=== PATIENT | female | born 1965 | race Two or more races ===

== ENCOUNTER 2019-07-07 17:50 | Emergency (ER) | payer MEDICAID, OTHER ==
[2019-07-07 19:10] LABS: Basophils # (auto) 0 uL; Basophils % (auto) 0.5 % (0.0-2.0); Eosinophils # (auto) 0.1 uL; Eosinophils % (auto) 0.8 % (0.0-7.0); Hematocrit 40.8 % (36.0-46.0); Hemoglobin 13.6 g/dL (12.2-16.2); Lymphocytes # (auto) 3.5 uL; Lymphocytes % (auto) 44.1 % (10.0-50.0); Mean Corpuscular Hemoglobin 28.3 pg (28.0-32.0); Mean Corpuscular Hgb Conc. 33.3 g/dL (32.0-36.0); Mean Corpuscular Volume 85.1 fL (80.0-100.0); Monocytes # (auto) 0.5 uL; Monocytes % (auto) 5.7 % (0.0-12.0); Neutrophils # (auto) 3.9 uL; Neutrophils % (auto) 48.9 % (37.0-80.0); Nucleated Red Blood Cells % 0.1 %; Platelet Count (auto) 198 10^3/uL (140-450); Red Blood Cells 4.79 10^6/uL (4.0-5.20); Red Cell Distribution Width 14.4 % (11.8-14.3)
[2019-07-07 19:24] LABS: Alanine Aminotransferase 31 U/L (13-56); Albumin 3.5 g/dL (3.4-5.0); Anion Gap 11 (5-15); Aspartate Aminotransferase 22 U/L (15-37); BUN/Creatinine Ratio 16.1; Blood Urea Nitrogen 14 mg/dL (7-18); Calcium 8.7 mg/dL (8.5-10.1); Carbon Dioxide 22 mmol/L (21-32); Chloride 106 mmol/L (98-107); GFR African American 87 mL/min; GFR Non-African American 72 mL/min; Glucose 185 mg/dL (74-106); Potassium 3.1 mmol/L (3.5-5.1); Sodium 139 mmol/L (136-145)
[2019-07-07 19:34] LABS: Alkaline Phosphatase 191 U/L (45-117); Bilirubin, Total 0.4 mg/dL (0.2-1.0); Total Protein 7.3 g/dL (6.4-8.2)
[2019-07-07] MEDS ORDERED: SODIUM CHLORIDE 0.9% 1,000 ML IV ONE (20:00)
== END 2019-07-07 23:45 | disposition left against medical advice (07) ==
LOC: EDBD 17:50 → ER 17:59
DX: R07.89 Other chest pain (principal); R55 Syncope and collapse; R11.0 Nausea; R06.02 Shortness of breath; E11.9 Type 2 diabetes mellitus without complications; Z86.73 Personal history of transient ischemic attack (TIA), and cerebral infarction without residual deficits
CPT/HCPCS: 36415; 80053; 82962; 84484; 85025; 93005

== ENCOUNTER 2021-04-15 15:24 | Inpatient (IN) | payer MEDICAID ==
[~2021-04-15] VITALS: Ht 157.5 cm; Wt 83.0 kg
[2021-04-15 16:23] LABS: Basophils # (auto) 0.1 10 ^3/uL (0-0.2); Basophils % (auto) 0.8 % (0.0-2.0); Eosinophils # (auto) 0.1 10 ^3/uL (0-0.8); Eosinophils % (auto) 1.1 % (0.0-7.0); Hematocrit 36.4 % (36.0-46.0); Hemoglobin 12.5 g/dL (12.2-16.2); Lymphocytes # (auto) 3.6 10 ^3/uL (0.4-5.4); Lymphocytes % (auto) 47.3 % (10.0-50.0); Mean Corpuscular Hgb Conc. 34.2 g/dL (32.0-36.0); Mean Corpuscular Volume 84.7 fL (80.0-100.0); Monocytes # (auto) 0.6 10 ^3/uL (0-1.3); Monocytes % (auto) 7.7 % (0.0-12.0); Neutrophils # (auto) 3.2 10 ^3/uL (1.6-8.6); Neutrophils % (auto) 43.1 % (37.0-80.0); Nucleated Red Blood Cells % 0.1 %; Platelet Count (auto) 241 10^3/uL (140-450); Red Cell Distribution Width 14.5 % (11.8-14.3); White Blood Cell 7.5 10^3/uL (4.4-10.8)
[2021-04-15 16:42] LABS: Calcium 8.3 mg/dL (8.5-10.1); Potassium 3.8 mmol/L (3.5-5.1)
[2021-04-15 16:48] LABS: Albumin 3.2 g/dL (3.4-5.0); BUN/Creatinine Ratio 19.7; Bilirubin, Total 0.6 mg/dL (0.2-1.0); Total Protein 7.2 g/dL (6.4-8.2)
[2021-04-15] MEDS ORDERED: ASPirin 325 MG TAB PO ONE (20:15)
[2021-04-15] MEDS ORDERED: IOHEXOL 350 MG/ML 100ML IJ ONE (20:39)
[2021-04-15] MEDS ORDERED: TEMAZEPAM 15 MG CAP PO PRN (21:15)
[2021-04-15] MEDS ORDERED: NITROGLYCERIN 0.4 MG SL TAB SL PRN ×2 (21:15→21:45)
[2021-04-15] MEDS ORDERED: ONDANSETRON HCL 4 MG/2 ML VIAL IV PRN (21:15)
[2021-04-15] MEDS ORDERED: MORPHINE SULF INJ 2 MG/ML SYRINGE 1ML IV PRN ×2 (21:15→21:45)
[2021-04-15] MEDS ORDERED: cloNIDine HCL 0.1 MG TAB PO PRN (21:15)
[2021-04-15] MEDS ORDERED: DEXTROSE (50%) 50ML SYRG IV PRN (21:15)
[2021-04-15] MEDS: FAMOTIDINE 20 MG TAB PO SCH (22:30)
[2021-04-15] MEDS: ATORVASTATIN 20 MG TAB PO SCH (22:30)
[2021-04-15] MEDS: InsuLIN REG 1unit/0.01ml Soln (100units/ml) SC SCH (22:35)
[2021-04-15] MEDS: ACCU-CHEK COMFORT CURVE STRIP VI SCH (22:38)
[2021-04-16 00:26] VITALS: BP 142/75
[2021-04-16] MEDS: ACETAMINOPHEN 325 MG TAB PO PRN ×2 (00:43→12:49)
[2021-04-16 01:25] LABS: Urine Bacteria FEW /hpf (None Seen); Urine Blood Negative /uL (Negative); Urine Specific Gravity > 1.050 (1.001-1.035); Urine WBC 117 /hpf (0 - 5)
[2021-04-16 04:43] VITALS: BP 142/75
[2021-04-16 06:20] LABS: Basophils # (auto) 0 10 ^3/uL (0-0.2); Basophils % (auto) 0.6 % (0.0-2.0); Eosinophils # (auto) 0.1 10 ^3/uL (0-0.8); Eosinophils % (auto) 1.7 % (0.0-7.0); Hematocrit 36.8 % (36.0-46.0); Lymphocytes # (auto) 3.1 10 ^3/uL (0.4-5.4); Lymphocytes % (auto) 44.1 % (10.0-50.0); Mean Corpuscular Hemoglobin 28.2 pg (28.0-32.0); Mean Corpuscular Hgb Conc. 32.7 g/dL (32.0-36.0); Monocytes # (auto) 0.6 10 ^3/uL (0-1.3); Monocytes % (auto) 8.6 % (0.0-12.0); Neutrophils # (auto) 3.2 10 ^3/uL (1.6-8.6); Nucleated Red Blood Cells % 0.1 %; Platelet Count (auto) 227 10^3/uL (140-450); Red Blood Cells 4.27 10^6/uL (4.0-5.20); Red Cell Distribution Width 14.6 % (11.8-14.3); White Blood Cell 7.1 10^3/uL (4.4-10.8)
[2021-04-16 06:31] LABS: Potassium 3.6 mmol/L (3.5-5.1)
[2021-04-16 06:40] LABS: Albumin 2.9 g/dL (3.4-5.0); BUN/Creatinine Ratio 25.9; Bilirubin, Total 0.6 mg/dL (0.2-1.0); Calcium 8.4 mg/dL (8.5-10.1); Total Protein 6.4 g/dL (6.4-8.2)
[2021-04-16] MEDS: InsuLIN REG 1unit/0.01ml Soln (100units/ml) SC SCH ×4 (06:44→23:19)
[2021-04-16] MEDS: ACCU-CHEK COMFORT CURVE STRIP VI SCH ×4 (07:00→22:53)
[2021-04-16 08:30] VITALS: BP 109/66
[2021-04-16] MEDS: FAMOTIDINE 20 MG TAB PO SCH ×2 (08:42→22:46)
[2021-04-16] MEDS: LISINOPRIL 10 MG TAB PO SCH (08:48)
[2021-04-16] MEDS: ENOXAPARIN SOD 40 MG/0.4 ML SYRINGE SC SCH (08:49)
[2021-04-16] MEDS ORDERED: LORazepam 2MG/ML-1ML VIAL IV PRN (09:15)
[2021-04-16 09:41] LABS: Cholesterol 162 mg/dL (< 200); HDL Cholesterol 38 mg/dL (40-59); LDL Cholesterol 102 mg/dL (< 100); Triglycerides 154 mg/dL (< 150)
[2021-04-16] MEDS ORDERED: ASPirin 81 mg TAB PO SCH (10:00)
[2021-04-16] MEDS ORDERED: CLOPIDOGREL BISULFATE 75 MG TAB PO SCH (10:00)
[2021-04-16 12:30] VITALS: BP 141/76
[2021-04-16 17:00] VITALS: BP 159/83
[2021-04-16 22:00] VITALS: BP 105/56
[2021-04-16] MEDS: ATORVASTATIN 20 MG TAB PO SCH (22:46)
[2021-04-17 04:06] VITALS: BP 105/56
[2021-04-17 06:00] VITALS: BP 112/61
[2021-04-17 06:13] LABS: BUN/Creatinine Ratio 32.1; Calcium 8.4 mg/dL (8.5-10.1); Magnesium 2.1 mg/dL (1.6-2.6); Potassium 3.9 mmol/L (3.5-5.1)
[2021-04-17] MEDS: ACCU-CHEK COMFORT CURVE STRIP VI SCH ×2 (06:20→12:24)
[2021-04-17] MEDS: InsuLIN REG 1unit/0.01ml Soln (100units/ml) SC SCH ×2 (06:23→12:25)
[2021-04-17 09:00] VITALS: BP 92/60
[2021-04-17] MEDS: LISINOPRIL 10 MG TAB PO SCH (10:00)
[2021-04-17] MEDS ORDERED: ASPirin 81 mg TAB PO SCH (10:00)
[2021-04-17] MEDS: ENOXAPARIN SOD 40 MG/0.4 ML SYRINGE SC SCH (10:10)
[2021-04-17] MEDS: FAMOTIDINE 20 MG TAB PO SCH (10:11)
[2021-04-17 12:46] VITALS: BP 102/48
[2021-04-17] MEDS ORDERED: METF-370 PO (13:21)
[2021-04-17] MEDS ORDERED: SIMV-8 PO (13:23)
[2021-04-17] MEDS ORDERED: GABA300C10 PO (13:25)
[2021-04-17] MEDS ORDERED: ACET500C8 PO (13:30)
[2021-04-17] MEDS ORDERED: LORA-622 PO (13:30)
[2021-04-17] MEDS ORDERED: ACET-1156 PO (13:30)
[2021-04-17] MEDS ORDERED: INSLISPI SC (13:30)
[2021-04-17] MEDS ORDERED: INSU1INJ19 SC (13:30)
[2021-04-17] MEDS ORDERED: ASPI-378 PO (13:43)
[2021-04-17 14:59] VITALS: BP 102/68
== END 2021-04-17 15:48 | disposition home or self-care (01) | DRG 58 ==
LOC: ER 15:26 → TELE 23:01 → TELE-WESTW 23:21
PROVIDERS: ADMIT Nurse Practitioner; ATTEND Internal Medicine
DX: R20.2 Paresthesia of skin (principal); E44.0 Moderate protein-calorie malnutrition; I69.354 Hemiplegia and hemiparesis following cerebral infarction affecting left non-dominant side; R29.810 Facial weakness; Z20.822 Contact with and (suspected) exposure to COVID-19; E11.9 Type 2 diabetes mellitus without complications; I10 Essential (primary) hypertension; E66.9 Obesity, unspecified; G47.10 Hypersomnia, unspecified; R47.81 Slurred speech; E78.5 Hyperlipidemia, unspecified; Z68.29 Body mass index [BMI] 29.0-29.9, adult; Z86.16 Personal history of COVID-19; Z87.01 Personal history of pneumonia (recurrent); Z79.02 Long term (current) use of antithrombotics/antiplatelets; Z79.82 Long term (current) use of aspirin; Z79.899 Other long term (current) drug therapy; Z83.3 Family history of diabetes mellitus; Z82.49 Family history of ischemic heart disease and other diseases of the circulatory system
CPT/HCPCS: 36415; 70450; 70496; 70498; 70545; 70551; 71045; 80048; 80053; 80061; 81001; 81025; 82962; 83036; 83735; 83880; 84443; 85025; 87426; 93306; 93886; 94660; G0378; J1815

== ENCOUNTER 2021-10-09 15:28 | Emergency (ER) | payer MEDICAID ==
[~2021-10-09] VITALS: Ht 152.4 cm; Wt 78.0 kg
[~2021-10-09 15:28] MED LIST: ACET-1156 PO; ACET500C8 PO; ASPI-378 PO; GABA300C10 PO; INSLISPI SC; INSU1INJ19 SC; LORA-622 PO; METF-370 PO; SIMV-8 PO
[2021-10-09 17:07] LABS: Basophils # (auto) 0 10 ^3/uL (0-0.2); Basophils % (auto) 0.3 % (0.0-2.0); Eosinophils # (auto) 0.1 10 ^3/uL (0-0.8); Eosinophils % (auto) 1.1 % (0.0-7.0); Hematocrit 40.8 % (36.0-46.0); Hemoglobin 13.3 g/dL (12.2-16.2); Lymphocytes # (auto) 3.5 10 ^3/uL (0.4-5.4); Lymphocytes % (auto) 41.1 % (10.0-50.0); Mean Corpuscular Hemoglobin 27.8 pg (28.0-32.0); Mean Corpuscular Hgb Conc. 32.7 g/dL (32.0-36.0); Mean Corpuscular Volume 85.2 fL (80.0-100.0); Monocytes # (auto) 0.4 10 ^3/uL (0-1.3); Monocytes % (auto) 5.2 % (0.0-12.0); Neutrophils # (auto) 4.4 10 ^3/uL (1.6-8.6); Neutrophils % (auto) 52.3 % (37.0-80.0); Nucleated Red Blood Cells % 0.1 %; Red Blood Cells 4.78 10^6/uL (4.0-5.20); White Blood Cell 8.4 10^3/uL (4.4-10.8)
[2021-10-09 17:10] LABS: Albumin 3.5 g/dL (3.4-5.0); Calcium 8.8 mg/dL (8.5-10.1); Potassium 3.8 mmol/L (3.5-5.1)
[2021-10-09 17:14] LABS: BUN/Creatinine Ratio 20.7; Bilirubin, Total 0.4 mg/dL (0.2-1.0); Total Protein 7.6 g/dL (6.4-8.2)
[2021-10-09 20:45] VITALS: BP 140/80
== END 2021-10-09 23:36 | disposition home or self-care (01) ==
LOC: ER 15:28
DX: G51.0 Bell's palsy (principal); E11.9 Type 2 diabetes mellitus without complications; I10 Essential (primary) hypertension; Z86.73 Personal history of transient ischemic attack (TIA), and cerebral infarction without residual deficits; Z79.4 Long term (current) use of insulin; Z79.899 Other long term (current) drug therapy
CPT/HCPCS: 36415; 70450; 80053; 84484; 85025; 93005